=== PATIENT | female | born 1995 | race Caucasian/White ===

== ENCOUNTER 2017-01-13 17:11 | Emergency (ER) | payer OTHER ==
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
--- NOTE | ~2017-01-13 | CR279 ---
[facility]. [facility] A Service of [facility] & [facility] RADIOLOGY TEXT RESULTS PATIENT: CYNTHIA COELLO LOCATION: SED : 93 UNIT #: [id number] AGE: [address]: Chris Flores MD SEX: F ORDER DR: [id number] [place] [id number] E MR#: [id number] Acc #: [id number] NAME: CYNTHIA COELLO : 1995 SEX: F STUDY DATE/TIME: 01/13/2017 21:11 UNIT: SED ROOM: STUDY DESCRIPTION: CR Wrist 2 View Rt Attending Physician: Chris Flores M.D. Ordering Physician: Chris Flores M.D. Primary Care Physician: Primary Care Physician No MEDICAL IMAGING REPORT This report is preliminary unless electronic signature is present. EXAM Post reduction right wrist series, 01/13/2017 HISTORY Wrist fractures. Post reduction series. TECHNIQUE Two-view right wrist series was obtained through dense cast material following reduction. FINDINGS Post reduction images through dense cast material shows near anatomic alignment of comminuted intraarticular fracture of the distal radius. Ulnar styloid fracture fragment is also in anatomic alignment. Soft tissue swelling surrounds the wrist. Dictated by... Trent Barber M.D. THIS IS AN ELECTRONICALLY VERIFIED REPORT Trent Barber M.D. at 01/14/2017 10:15 AM ERENDIRA/ina TD: 01/14/2017 02:44 JOB #: [id number] MEDICAL IMAGING REPORT Page 1 of 1
[~2017-01-13 17:11] MED LIST: FLEXERIL10 MG PO; MOTRIN400 MG PO
[2017-01-13] MEDS ORDERED: NO MEDICATIONS (17:23)
== END 2017-01-13 23:59 | disposition home or self-care (01) ==
LOC: SED 17:11
DX: S52.501A Unspecified fracture of the lower end of right radius, initial encounter for closed fracture (principal); S52.611A Displaced fracture of right ulna styloid process, initial encounter for closed fracture; J45.909 Unspecified asthma, uncomplicated; S20.219A Contusion of unspecified front wall of thorax, initial encounter; V49.40XA Driver injured in collision with unspecified motor vehicles in traffic accident, initial encounter
CPT/HCPCS: 25605; 71020; 73100; 73110; 96374; 96375; 99152; 99284; J2250; J2270; J2405